=== PATIENT | female | born 1960 | race Caucasian/White ===

== ENCOUNTER 2016-12-12 11:57 | Emergency (ER) | payer MEDICAID ==
[2015-05-13 22:28] VITALS: BMI 36.6
[~2016-12-12 11:57] MED LIST: BABY ASPIRIN81 MG PO; CIPRO500 MG PO; FLAGYL500 MG PO; KLONOPIN1 MG PO; MIRALAX17 GM PO; NORCO 10/325 TA1 TA1 PO; PEPCID20 MG PO; PERCOCET 10/3251 TA1 PO; PHENERGAN25 M1 PO; PRILOSEC20 MG PO; PROZAC40 MG PO; SPIRIVA18 MCG INH; SYMBICORT 16010.2 GM INH; VENTOLIN HFA18 GM INH
[2016-12-12 12:53] LABS: BASOPHILS 0.6 % (0-2); EOSINOPHILS 1.9 % (0-7); HEMATOCRIT 44.2 % (36.0-48.0); HEMOGLOBIN 14.7 g/dL (12-16); IMMATURE GRANULOCYTES 0.2 % (0-5); LYMPHOCYTES 36.7 % (15-50); MCH 30.9 pg (26.0-34.0); MCHC 33.3 g/dL (31.0-37.0); MCV 92.9 fL (80.0-100.0); MEAN PLATELET VOLUME 11.2 fL (7.4-10.4); MONOCYTES 4.7 % (2-11); NEUTROPHILS 55.9 % (40-80); RBC 4.76 10x6/uL (4.00-5.40); RDW 13.5 % (11.5-14.5); WBC 4.7 10x3/uL (4.8-10.8)
[2016-12-12 12:54] LABS: PLATELET COUNT 126 10x3/uL (130-400)
[2016-12-12 13:10] LABS: ALBUMIN 3.5 g/dL (3.4-5.0); ALKALINE PHOSPHATASE 174 U/L (46-116); ALT (SGPT) 29 U/L (10-68); CALC OSMOLALITY 276 mosm/kg (275-300); CARBON DIOXIDE 31.4 mmol/L (21.0-32.0); CHLORIDE - SERUM 105 mmol/L (98-107); CREATININE - SERUM 0.8 mg/dL (0.6-1.3); GLUCOSE 88 mg/dL (74-106); POTASSIUM - SERUM 4.8 mmol/L (3.5-5.1); PROTEIN - SERUM 7.5 g/dL (6.4-8.2); SODIUM 139 mmol/L (136-145); UREA NITROGEN 12 mg/dL (7-18); eGFR NON AFRICAN AMERICAN 79 mL/min (90-120)
[2016-12-12 13:22] LABS: PRO BNP 392 pg/mL (0-125); TROPONIN-I < 0.017 ng/mL (0.000-0.060)
== END 2016-12-12 16:17 | disposition home or self-care (01) ==
LOC: D.ER 11:57
PROVIDERS: Emergency Medicine
DX: R07.9 Chest pain, unspecified (principal); J20.9 Acute bronchitis, unspecified; J44.1 Chronic obstructive pulmonary disease with (acute) exacerbation; F17.200 Nicotine dependence, unspecified, uncomplicated

== ENCOUNTER 2016-12-22 19:42 | Emergency (ER) | payer MEDICAID ==
[2015-05-13 22:28] VITALS: BMI 36.6
[2016-12-22 20:47] LABS: BASOPHILS 0.4 % (0-2); EOSINOPHILS 1.7 % (0-7); HEMATOCRIT 41.3 % (36.0-48.0); HEMOGLOBIN 13.8 g/dL (12-16); IMMATURE GRANULOCYTES 0.4 % (0-5); LYMPHOCYTES 46.4 % (15-50); MCH 30.7 pg (26.0-34.0); MCHC 33.4 g/dL (31.0-37.0); MCV 91.8 fL (80.0-100.0); MEAN PLATELET VOLUME 9.5 fL (7.4-10.4); MONOCYTES 6.8 % (2-11); NEUTROPHILS 44.3 % (40-80); RDW 14.1 % (11.5-14.5); WBC 4.8 10x3/uL (4.8-10.8)
[2016-12-22 20:51] LABS: PLATELET COUNT 354 10x3/uL (130-400)
[2016-12-22 21:05] LABS: ALBUMIN 3.6 g/dL (3.4-5.0); ANION GAP 11.1 mmol/L (8-16); BILIRUBIN - TOTAL 0.15 mg/dL (0.2-1.3); CALCIUM 10.1 mg/dL (8.5-10.1); CARBON DIOXIDE 28.4 mmol/L (21.0-32.0); CREATININE - SERUM 0.9 mg/dL (0.6-1.3); POTASSIUM - SERUM 4.5 mmol/L (3.5-5.1); PROTEIN - SERUM 7.4 g/dL (6.4-8.2)
== END 2016-12-23 01:33 | disposition home or self-care (01) ==
LOC: D.ER 19:42
PROVIDERS: Emergency Medicine
DX: K08.89 Other specified disorders of teeth and supporting structures (principal); F17.200 Nicotine dependence, unspecified, uncomplicated; J44.9 Chronic obstructive pulmonary disease, unspecified

== ENCOUNTER 2017-02-27 13:27 | Emergency (ER) | payer MEDICAID ==
[2015-05-13 22:28] VITALS: BMI 36.6
[2017-02-27 14:24] LABS: BASOPHILS 0.6 % (0-2); EOSINOPHILS 1.9 % (0-7); HEMATOCRIT 39.5 % (36.0-48.0); HEMOGLOBIN 13.2 g/dL (12-16); IMMATURE GRANULOCYTES 0.2 % (0-5); MCH 30.3 pg (26.0-34.0); MCHC 33.4 g/dL (31.0-37.0); MCV 90.6 fL (80.0-100.0); MEAN PLATELET VOLUME 9.7 fL (7.4-10.4); MONOCYTES 5.2 % (2-11); NEUTROPHILS 52.1 % (40-80); RBC 4.36 10x6/uL (4.00-5.40); RDW 14.6 % (11.5-14.5); WBC 5.4 10x3/uL (4.8-10.8)
[2017-02-27 14:29] LABS: PLATELET COUNT 231 10x3/uL (130-400)
[2017-02-27 14:33] LABS: APPEARANCE CLEAR (CLEAR); BILIRUBIN NEGATIVE (NEGATIVE); COLOR YELLOW (YELLOW); GLUCOSE NEGATIVE (NEGATIVE); KETONE NEGATIVE (NEGATIVE); LEUKOCYTE ESTERASE 1+ (NEGATIVE); NITRITE NEGATIVE (NEGATIVE); PROTEIN NEGATIVE (NEGATIVE); UROBILINOGEN NORMAL (NORMAL)
[2017-02-27 14:34] LABS: SPECIFIC GRAVITY 1.005 (1.005-1.020)
[2017-02-27 14:35] LABS: EPITHELIAL CELLS 0-5 /hpf (0-5); WHITE CELLS - URINE 0-5 /hpf (0-5)
[2017-02-27 14:38] LABS: BACTERIA FEW /hpf (NONE SEEN)
[2017-02-27 15:15] LABS: ALBUMIN 3.4 g/dL (3.4-5.0); ALKALINE PHOSPHATASE 113 U/L (46-116); ALT (SGPT) 38 U/L (10-68); BILIRUBIN - TOTAL 0.16 mg/dL (0.2-1.3); CALC OSMOLALITY 282 mosm/kg (275-300); CALCIUM 9.3 mg/dL (8.5-10.1); CARBON DIOXIDE 26.7 mmol/L (21.0-32.0); CHLORIDE - SERUM 106 mmol/L (98-107); CREATININE - SERUM 0.6 mg/dL (0.6-1.3); GLUCOSE 91 mg/dL (74-106); POTASSIUM - SERUM 4.5 mmol/L (3.5-5.1); PROTEIN - SERUM 6.6 g/dL (6.4-8.2); SODIUM 142 mmol/L (136-145); UREA NITROGEN 12 mg/dL (7-18); eGFR NON AFRICAN AMERICAN > 90 mL/min (90-120)
[2017-02-27 15:27] LABS: AMYLASE - SERUM 34 U/L (25-115); CKMB 0.1 U/L (0.0-3.6); CREATINE KINASE 37 UL (21-215); LIPASE 133 U/L (73-393)
[2017-02-27 15:28] LABS: TROPONIN-I < 0.017 ng/mL (0.000-0.060)
== END 2017-02-27 18:18 | disposition home or self-care (01) ==
LOC: D.ER 13:27
PROVIDERS: Emergency Medicine
DX: R10.9 Unspecified abdominal pain (principal); F17.200 Nicotine dependence, unspecified, uncomplicated; R11.0 Nausea